=== PATIENT | female | born 1945 | race African-American/Black ===

== ENCOUNTER 2021-01-07 22:04 | Inpatient (IN) | payer OTHER, MEDICAID ==
[~2021-01-07] VITALS: Ht 167.6 cm; Wt 78.9 kg
[2021-01-07] MEDS ORDERED: SODIUM CHLORIDE 0.9% 1,000 ML IV ONE (22:30)
[2021-01-07 22:49] LABS: BASOPHILS % 0.5 % (0.0-2.0); EOSINOPHILS % 0.2 % (0.0-5.0); HEMATOCRIT. 41.7 % (36.0-48.0); HEMOGLOBIN. 14.4 g/dL (12.0-16.0); LYMPHOCYTES % 15.3 % (20.0-50.0); MEAN CORPUSCULAR HEMOGLOBIN 33.8 pg (28.0-32.0); MEAN CORPUSCULAR VOLUME 97.6 fL (81.0-99.0); MEAN PLATELET VOLUME 7.3 fl (7.4-10.4); MONOCYTES % 4.2 % (2.0-8.0); NEUTROPHILS % 79.8 % (40.0-76.0); PLATELET 264 x1000/uL (130-400); RED BLOOD CELL COUNT 4.27 mill/uL (4.2-5.4); RED CELL DISTRIBUTION WIDTH 13.2 % (11.6-14.6)
[2021-01-07 22:59] LABS: PROTHROMBIN TIME 11.1 sec (9.6-11.0)
[2021-01-07 23:04] LABS: CHLORIDE 105 mEq/L (98-107)
[2021-01-08] VITALS (9 sets, daily range): BP systolic 108–152; BP diastolic 70–86
[2021-01-08] MEDS ORDERED: ASPIRIN 325MG TABLET PO ONE
[2021-01-08] MEDS ORDERED: DEXTROSE 50% WATER 50ML SYRINGE IV PRN (07:15)
[2021-01-08] MEDS: INSULIN LISPRO 100 UNITS/ML SUBCUT SCH ×4 (08:00→21:11)
[2021-01-08] MEDS: BLOOD SUGAR DIAGNOSTIC STRIP TEST SCH ×4 (08:01→21:12)
[2021-01-08] MEDS: PANTOPRAZOLE SODIUM 40 MG/VIAL IV SCH (09:05)
[2021-01-08] MEDS: HEPARIN 5000 UNITS/ML VIAL SUBCUT SCH ×2 (09:07→20:36)
[2021-01-08] MEDS: DEXT 5%/0.45% NACL KCL 20MEQ/L 1,000 ML IV SCH ×2 (10:01→20:39)
[2021-01-08] MEDS ORDERED: AMLO10TA80 PO (14:54)
[2021-01-08] MEDS ORDERED: SIMV-43 PO (14:54)
[2021-01-08] MEDS ORDERED: METF-414 PO (14:54)
[2021-01-08] MEDS ORDERED: ASPI-1160 PO (14:54)
[2021-01-08] MEDS ORDERED: INSU100I24 SQ (14:54)
[2021-01-08] MEDS ORDERED: METO25TA6 PO (14:54)
[2021-01-08] MEDS ORDERED: CLON-457 PO (14:54)
[2021-01-08] MEDS: CLOPIDOGREL 75MG TABLET PO SCH (20:39)
[2021-01-09] VITALS (13 sets, daily range): BP systolic 112–188; BP diastolic 64–98
[2021-01-09] MEDS: DEXT 5%/0.45% NACL KCL 20MEQ/L 1,000 ML IV SCH ×2 (05:08→15:30)
[2021-01-09] MEDS: BLOOD SUGAR DIAGNOSTIC STRIP TEST SCH ×4 (07:38→20:15)
[2021-01-09] MEDS: HEPARIN 5000 UNITS/ML VIAL SUBCUT SCH ×2 (08:27→20:14)
[2021-01-09] MEDS: CLOPIDOGREL 75MG TABLET PO SCH (08:27)
[2021-01-09] MEDS: PANTOPRAZOLE SODIUM 40 MG/VIAL IV SCH (08:27)
[2021-01-09] MEDS: INSULIN LISPRO 100 UNITS/ML SUBCUT SCH ×4 (08:28→20:15)
[2021-01-09] MEDS ORDERED: MEDICATION NOT ON FORMULARY EA (Simvastatin 20 MG) PO SCH (10:15)
[2021-01-09] MEDS: ASPIRIN 81MG TABLET PO SCH (11:12)
[2021-01-09] MEDS: AMLODIPINE 10MG TABLET PO SCH (11:13)
[2021-01-09] MEDS: METOPROLOL TARTRATE 25MG TABLET PO SCH ×2 (11:14→17:14)
[2021-01-09] MEDS: ATORVASTATIN CALCIUM 10MG TABLET PO SCH (12:37)
[2021-01-09] MEDS ORDERED: MEDICATION NOT ON FORMULARY EA (Clonidine HCl (Clonidine HCl ER) 0.1 MG) PO SCH (17:00)
[2021-01-09] MEDS: METFORMIN HCL 500MG TABLET PO SCH (17:14)
[2021-01-10] VITALS (11 sets, daily range): BP systolic 128–175; BP diastolic 57–99
[2021-01-10] MEDS: BLOOD SUGAR DIAGNOSTIC STRIP TEST SCH ×4 (07:30→20:45)
[2021-01-10] MEDS: CLOPIDOGREL 75MG TABLET PO SCH (09:50)
[2021-01-10] MEDS: PANTOPRAZOLE SODIUM 40 MG/VIAL IV SCH (09:51)
[2021-01-10] MEDS: INSULIN LISPRO 100 UNITS/ML SUBCUT SCH ×4 (09:52→20:45)
[2021-01-10] MEDS: METOPROLOL TARTRATE 25MG TABLET PO SCH ×2 (09:54→17:26)
[2021-01-10] MEDS: ASPIRIN 81MG TABLET PO SCH (09:54)
[2021-01-10] MEDS: AMLODIPINE 10MG TABLET PO SCH (09:55)
[2021-01-10] MEDS: HEPARIN 5000 UNITS/ML VIAL SUBCUT SCH ×2 (09:55→20:44)
[2021-01-10] MEDS: METFORMIN HCL 500MG TABLET PO SCH ×2 (09:55→17:26)
[2021-01-10] MEDS: INSULIN GLARGINE UD 100 UNITS/ML SYR SUBCUT SCH (09:56)
[2021-01-10 13:07] LABS: BASOPHILS % 0.4 % (0.0-2.0); EOSINOPHILS % 0.5 % (0.0-5.0); HEMATOCRIT. 38.1 % (36.0-48.0); HEMOGLOBIN. 13.1 g/dL (12.0-16.0); LYMPHOCYTES % 21.6 % (20.0-50.0); MEAN CORPUSCULAR HEMOGLOBIN 33.3 pg (28.0-32.0); MEAN CORPUSCULAR VOLUME 97.2 fL (81.0-99.0); MEAN PLATELET VOLUME 7.6 fl (7.4-10.4); MONOCYTES % 8.3 % (2.0-8.0); NEUTROPHILS % 69.2 % (40.0-76.0); PLATELET 235 x1000/uL (130-400); RED BLOOD CELL COUNT 3.92 mill/uL (4.2-5.4)
[2021-01-10] MEDS ORDERED: BISACODYL 10MG SUPP PR PRN (14:00)
[2021-01-10] MEDS ORDERED: HYDROCODONE/ACETAMINOPHEN 5/325MG TABLET PO PRN (14:00)
[2021-01-10] MEDS ORDERED: IPRATROPIUM/ALBUTEROL 0.5-3(2.5)MG/3ML NEB HHN PRN (14:00)
[2021-01-10] MEDS ORDERED: ONDANSETRON HCL 4MG/2ML INJ IV PRN (14:00)
[2021-01-10] MEDS ORDERED: HYDRALAZINE 20MG/ML VIAL IV PRN (14:00)
[2021-01-10] MEDS ORDERED: ACETAMINOPHEN 650MG SUPP PR PRN (14:00)
[2021-01-10] MEDS ORDERED: ACETAMINOPHEN 325MG TABLET PO PRN (14:00)
[2021-01-10 14:13] LABS: CHLORIDE 106 mEq/L (98-107)
[2021-01-10 14:23] LABS: BG BASE EXCESS -0.2 mmol/L (-2.0-2.0); BG CARBOXYHEMOGLOBIN 0.5 % (0.5-1.5); BG DEOXYHEMOGLOBIN 4.6 % (0.0-5.0); BG FRACTION INSPIRED OXYGEN 21; BG METHEMOGLOBIN 0.2 % (0.0-1.5); BG OXYGEN SATURATION 95.4 % (92.0-98.5); BG OXYHEMOGLOBIN 94.7 % (94.0-97.0); BG PCO2 37.9 mmHg (35.0-45.0); BG PH 7.419 (7.350-7.450); BG PO2 76.3 mmHg (75.0-100.0); BG SAMPLE SITE RIGHT BRACHIAL; BG TOTAL HEMOGLOBIN 14.3 g/dL (12.0-18.0); BG VENT MODE ROOM AIR
[2021-01-10] MEDS: ATORVASTATIN CALCIUM 10MG TABLET PO SCH (20:44)
[2021-01-11] VITALS (10 sets, daily range): BP systolic 100–160; BP diastolic 49–91
[2021-01-11 03:12] LABS: T4 FREE 0.84 ng/dL (0.76-1.46)
[2021-01-11 07:29] LABS: BASOPHILS % 0.2 % (0.0-2.0); EOSINOPHILS % 2.9 % (0.0-5.0); HEMATOCRIT. 41.6 % (36.0-48.0); HEMOGLOBIN. 14.1 g/dL (12.0-16.0); LYMPHOCYTES % 27.6 % (20.0-50.0); MEAN CORPUSCULAR HEMOGLOBIN 33.5 pg (28.0-32.0); MEAN CORPUSCULAR VOLUME 98.6 fL (81.0-99.0); MONOCYTES % 8.9 % (2.0-8.0); NEUTROPHILS % 60.4 % (40.0-76.0); PLATELET 234 x1000/uL (130-400); RED BLOOD CELL COUNT 4.22 mill/uL (4.2-5.4); RED CELL DISTRIBUTION WIDTH 12.8 % (11.6-14.6)
[2021-01-11] MEDS: INSULIN LISPRO 100 UNITS/ML SUBCUT SCH ×4 (08:00→20:25)
[2021-01-11] MEDS: BLOOD SUGAR DIAGNOSTIC STRIP TEST SCH ×4 (08:10→20:25)
[2021-01-11 09:12] LABS: CHLORIDE 105 mEq/L (98-107)
[2021-01-11] MEDS: METOPROLOL TARTRATE 25MG TABLET PO SCH ×2 (09:49→17:29)
[2021-01-11] MEDS: PANTOPRAZOLE SODIUM 40 MG/VIAL IV SCH (09:49)
[2021-01-11] MEDS: ASPIRIN 81MG TABLET PO SCH (09:49)
[2021-01-11] MEDS: METFORMIN HCL 500MG TABLET PO SCH ×2 (09:50→17:29)
[2021-01-11] MEDS: AMLODIPINE 10MG TABLET PO SCH (09:50)
[2021-01-11] MEDS: HEPARIN 5000 UNITS/ML VIAL SUBCUT SCH ×2 (09:50→20:44)
[2021-01-11] MEDS: CLOPIDOGREL 75MG TABLET PO SCH (09:53)
[2021-01-11] MEDS: INSULIN GLARGINE UD 100 UNITS/ML SYR SUBCUT SCH (11:05)
[2021-01-11 11:48] LABS: BG BASE EXCESS 1.2 mmol/L (-2.0-2.0); BG CARBOXYHEMOGLOBIN 1.1 % (0.5-1.5); BG DEOXYHEMOGLOBIN 6.4 % (0.0-5.0); BG HCO3 ACT 25.5 mmol/L (22.0-26.0); BG METHEMOGLOBIN 0.3 % (0.0-1.5); BG OXYGEN SATURATION 93.5 % (92.0-98.5); BG OXYHEMOGLOBIN 92.2 % (94.0-97.0); BG PCO2 39.6 mmHg (35.0-45.0); BG PH 7.427 (7.350-7.450); BG PO2 68.9 mmHg (75.0-100.0); BG SAMPLE SITE RIGHT BRACHIAL; BG TOTAL HEMOGLOBIN 14.8 g/dL (12.0-18.0); BG VENT MODE ROOM AIR
[2021-01-11] MEDS ORDERED: NALOXONE HCL 0.4MG/ML VIAL IV PRN (14:00)
[2021-01-11 16:42] LABS: CLARITY URINE CLEAR (CLEAR); COLOR URINE YELLOW (YELLOW); KETONES URINE 1+ (NEGATIVE); LEUKOCYTE ESTERASE URINE 1+ (NEGATIVE); NITRITE URINE NEGATIVE (NEGATIVE); OCCULT BLOOD URINE NEGATIVE (NEGATIVE); PROTEIN URINE NEGATIVE (NEGATIVE); SPECIFIC GRAVITY URINE 1.015 (1.005-1.030); UROBILINOGEN URINE 0.2 E.U./dL (0.2-1.0)
[2021-01-11 16:47] LABS: *AMPHETAMINES SCREEN URINE NEGATIVE (NEGATIVE); *BARBITURATES SCREEN URINE NEGATIVE (NEGATIVE); *BENZODIAZEPINES SCREEN URINE NEGATIVE (NEGATIVE)
[2021-01-11 16:48] LABS: *COCAINE SCREEN URINE NEGATIVE (NEGATIVE); CANNABINOID URINE SCREEN NEGATIVE (NEGATIVE); METHADONE URINE SCREEN NEGATIVE (NEGATIVE); OPIATES URINE SCREEN NEGATIVE (NEGATIVE); PHENCYCLIDINE URINE SCREEN NEGATIVE (NEGATIVE)
[2021-01-11] MEDS: IPRATROPIUM/ALBUTEROL 0.5-3(2.5)MG/3ML NEB HHN SCH (19:58)
[2021-01-11] MEDS: FAMOTIDINE 20MG TABLET PO SCH (20:44)
[2021-01-11] MEDS: ATORVASTATIN CALCIUM 10MG TABLET PO SCH (20:45)
[2021-01-12] VITALS (10 sets, daily range): BP systolic 115–147; BP diastolic 61–91
[2021-01-12] MEDS: IPRATROPIUM/ALBUTEROL 0.5-3(2.5)MG/3ML NEB HHN SCH ×4 (02:08→20:09)
[2021-01-12 07:16] LABS: CHLORIDE 104 mEq/L (98-107)
[2021-01-12] MEDS: BLOOD SUGAR DIAGNOSTIC STRIP TEST SCH ×4 (07:30→20:38)
[2021-01-12 07:34] LABS: BASOPHILS % 0.1 % (0.0-2.0); EOSINOPHILS % 0.1 % (0.0-5.0); HEMATOCRIT. 36.3 % (36.0-48.0); HEMOGLOBIN. 12.6 g/dL (12.0-16.0); MEAN CORPUSCULAR HEMOGLOBIN 33.9 pg (28.0-32.0); MEAN CORPUSCULAR VOLUME 97.4 fL (81.0-99.0); MEAN PLATELET VOLUME 7.8 fl (7.4-10.4); MONOCYTES % 8.9 % (2.0-8.0); NEUTROPHILS % 75.9 % (40.0-76.0); PLATELET 230 x1000/uL (130-400); RED BLOOD CELL COUNT 3.73 mill/uL (4.2-5.4); RED CELL DISTRIBUTION WIDTH 12.8 % (11.6-14.6)
[2021-01-12] MEDS: INSULIN LISPRO 100 UNITS/ML SUBCUT SCH ×4 (08:00→20:38)
[2021-01-12] MEDS ORDERED: IOHEXOL-350 100 ML BOTTLE ONE (10:08)
[2021-01-12] MEDS: ASPIRIN 81MG TABLET PO SCH (10:22)
[2021-01-12] MEDS: METFORMIN HCL 500MG TABLET PO SCH ×2 (10:22→18:54)
[2021-01-12] MEDS: AMLODIPINE 10MG TABLET PO SCH (10:23)
[2021-01-12] MEDS: CLOPIDOGREL 75MG TABLET PO SCH (10:26)
[2021-01-12] MEDS: HEPARIN 5000 UNITS/ML VIAL SUBCUT SCH ×2 (10:27→20:38)
[2021-01-12] MEDS: METOPROLOL TARTRATE 25MG TABLET PO SCH ×2 (10:29→18:54)
[2021-01-12] MEDS: INSULIN GLARGINE UD 100 UNITS/ML SYR SUBCUT SCH (10:30)
[2021-01-12] MEDS ORDERED: METOPROLOL TARTRATE 25MG TABLET PO SCH (10:45)
[2021-01-12] MEDS: LORAZEPAM 2MG/ML CPJ IV PRN (17:21)
[2021-01-12] MEDS: FAMOTIDINE 20MG TABLET PO SCH (20:38)
[2021-01-12] MEDS: ATORVASTATIN CALCIUM 10MG TABLET PO SCH (20:38)
[2021-01-13] VITALS (10 sets, daily range): BP systolic 112–152; BP diastolic 58–83
[2021-01-13] MEDS: IPRATROPIUM/ALBUTEROL 0.5-3(2.5)MG/3ML NEB HHN SCH ×3 (00:41→15:39)
[2021-01-13 06:32] LABS: BASOPHILS % 0.4 % (0.0-2.0); EOSINOPHILS % 1.7 % (0.0-5.0); HEMATOCRIT. 35.8 % (36.0-48.0); HEMOGLOBIN. 12.2 g/dL (12.0-16.0); LYMPHOCYTES % 21.3 % (20.0-50.0); MEAN CORPUSCULAR HEMOGLOBIN 33.1 pg (28.0-32.0); MEAN CORPUSCULAR VOLUME 97.1 fL (81.0-99.0); MEAN PLATELET VOLUME 7.8 fl (7.4-10.4); MONOCYTES % 10.8 % (2.0-8.0); NEUTROPHILS % 65.8 % (40.0-76.0); PLATELET 243 x1000/uL (130-400); RED BLOOD CELL COUNT 3.69 mill/uL (4.2-5.4); RED CELL DISTRIBUTION WIDTH 12.6 % (11.6-14.6)
[2021-01-13 06:44] LABS: CHLORIDE 106 mEq/L (98-107)
[2021-01-13] MEDS: BLOOD SUGAR DIAGNOSTIC STRIP TEST SCH ×3 (07:30→17:30)
[2021-01-13] MEDS: INSULIN LISPRO 100 UNITS/ML SUBCUT SCH ×3 (08:00→18:00)
[2021-01-13] MEDS: ASPIRIN 81MG TABLET PO SCH (09:34)
[2021-01-13] MEDS: METOPROLOL TARTRATE 25MG TABLET PO SCH (09:34)
[2021-01-13] MEDS: METFORMIN HCL 500MG TABLET PO SCH ×2 (09:34→16:06)
[2021-01-13] MEDS: AMLODIPINE 10MG TABLET PO SCH (09:34)
[2021-01-13] MEDS: HEPARIN 5000 UNITS/ML VIAL SUBCUT SCH (09:36)
[2021-01-13] MEDS: INSULIN GLARGINE UD 100 UNITS/ML SYR SUBCUT SCH (10:29)
[2021-01-13] MEDS: CLOPIDOGREL 75MG TABLET PO SCH (14:49)
[2021-01-13] MEDS: LORAZEPAM 2MG/ML CPJ IV PRN (14:49)
[2021-01-13] MEDS ORDERED: METOPROLOL TARTRATE 50MG TABLET PO SCH (17:00)
== END 2021-01-13 20:20 | DRG 64 ==
LOC: ER 22:04 → 5EST 01-08 02:13 → ENRESERV 01-08 02:31
PROVIDERS: ADMIT Internal Medicine; ATTEND Internal Medicine
DX: I63.9 Cerebral infarction, unspecified (principal); J18.9 Pneumonia, unspecified organism; I26.99 Other pulmonary embolism without acute cor pulmonale; E87.2 Acidosis; G93.49 Other encephalopathy; E11.9 Type 2 diabetes mellitus without complications; E66.9 Obesity, unspecified; E78.00 Pure hypercholesterolemia, unspecified; E78.5 Hyperlipidemia, unspecified; I25.10 Atherosclerotic heart disease of native coronary artery without angina pectoris; K80.20 Calculus of gallbladder without cholecystitis without obstruction; R29.810 Facial weakness; R47.81 Slurred speech; M19.90 Unspecified osteoarthritis, unspecified site; I10 Essential (primary) hypertension; Z20.822 Contact with and (suspected) exposure to COVID-19; I65.23 Occlusion and stenosis of bilateral carotid arteries; R06.03 Acute respiratory distress; Z83.3 Family history of diabetes mellitus; Z98.51 Tubal ligation status; Z68.28 Body mass index [BMI] 28.0-28.9, adult; Z86.73 Personal history of transient ischemic attack (TIA), and cerebral infarction without residual deficits; Z79.84 Long term (current) use of oral hypoglycemic drugs; Z79.899 Other long term (current) drug therapy
CPT/HCPCS: 36415; 36600; 70498; 70544; 70551; 71045; 71275; 74176; 80048; 80053; 80061; 80305; 81003; 82375; 82805; 82962; 83036; 83605; 84439; 84443; 84484; 85025; 85379; 87426; 92610; 93005; 93306; 93880; 93970; 94640; 97110; 97162; 97166; 97530; 99291; A6261; C9113; J1644; J1815; J2060; J2405; J7030; Q9967; U0003; U0005

== ENCOUNTER 2025-02-27 20:16 | Emergency (ER) | payer MEDICARE, MEDICAID ==
[~2025-02-27] VITALS: Ht 157.5 cm; Wt 79.0 kg
[~2025-02-27 20:16] MED LIST: AMLO10TA80 PO; ASPI-1406 PO; CLON0.1T PO; CLOP75TA33 PO; FURO20TA4 PO; INSU100I28 SUBCUT; METO-539 PO; RIVA1.5C30 PO; SIMV-43 PO; [UNRECOGNIZED DRUG - OTHER]
[2025-02-27 20:25] VITALS: TEMP 36.9; O2SAT 96
[2025-02-27 22:45] VITALS: BP 141/67; PULSE 70; RESP 14; O2SAT 98
== END 2025-02-27 23:11 | disposition home or self-care (01) ==
LOC: ER 20:16
DX: S09.90XA Unspecified injury of head, initial encounter (principal); F03.92 Unspecified dementia, unspecified severity, with psychotic disturbance; E78.00 Pure hypercholesterolemia, unspecified; E11.9 Type 2 diabetes mellitus without complications; I10 Essential (primary) hypertension; Z98.51 Tubal ligation status; Z79.899 Other long term (current) drug therapy; Z79.82 Long term (current) use of aspirin; Z79.4 Long term (current) use of insulin; Z79.02 Long term (current) use of antithrombotics/antiplatelets; Z86.73 Personal history of transient ischemic attack (TIA), and cerebral infarction without residual deficits; W06.XXXA Fall from bed, initial encounter; Y93.89 Activity, other specified; Y92.89 Other specified places as the place of occurrence of the external cause; Y99.8 Other external cause status
CPT/HCPCS: 71045; 72170; 99284